=== PATIENT | female | born 1990 | race Caucasian/White ===

== ENCOUNTER 2022-10-21 08:08 | Outpatient (CLI) | payer BC, SELFPAY ==
--- NOTE | 2022-10-21 08:15 | CRLHL7_ITS ---
For Patients: As a result of the Century Cures Act, medical imaging exams and procedure reports are released immediately into your electronic medical record. You may view this report before your referring provider. If you have questions, please contact your health care provider. INDICATION: First trimester scan, establish dates. COMPARISON: None. TECHNIQUE: Real-time xiong-scale imaging of the pelvis was performed. FINDINGS: Sonographic imaging demonstrates a single living intrauterine gestation. The embryo demonstrates a regular cardiac rate measuring 178 beats per minute. The embryo`s crown-rump length measurement of 2.4 cm corresponds to a gestational age of 9 weeks 1 day with a sonographic due date of 05/25/2023. There is a normal-appearing yolk sac. There are no gross abnormalities noted within the embryo at this early state of development. The gestational sac has a normal appearance. There is a 1.7 x 0.5 x 1.1 cm lower uterine segment perigestational hemorrhage. The amount of fluid within the sac appears appropriate for gestational age. The cervix is closed. The myometrium appears normal. The ovaries are of normal size. Corpus luteal cyst right ovary. There are no suspicious fluid collections noted in the cul-de-sac. IMPRESSION: Single living intrauterine with sonographic gestational age 9 weeks 1 day and sonographic due date 05/25/2023. Lower uterine segment subchorionic hemorrhage measuring 1.7 x 0.5 x 1.1 cm. Dictated by Wilian Carmona MD @ 10/21/2022 12:02:19 PM (Electronically Signed)
== END 2022-10-21 08:09 | disposition home or self-care (01) ==
LOC: US 08:09
PROVIDERS: Visit Provider Advanced Practice Midwife
DX: Z34.91 Encounter for supervision of normal pregnancy, unspecified, first trimester (principal); Z3A.10 10 weeks gestation of pregnancy
CPT/HCPCS: 76817; 80053; 82570; 82728; 84156; 84443; 86592; 86703; 86762; 86787; 86803; 86850; 86900; 86901; 87086; 87340

== ENCOUNTER 2022-12-02 11:17 | Outpatient (CLI) | payer BC, SELFPAY ==
[2022-12-05 12:16] LABS: Dating Other; Family Hx Neural Tube Defect No; Insulin Req Maternal Diabetes No; Maternal Age At Delivery 31.7 yr; Maternal Race Nonblack; Maternal Screen Interpretation Screen Neg; MoM for AFP 0.57; Number of Fetuses Singleton; Patient's AFP 17 ng/mL; Smoking No
== END 2022-12-02 11:18 | disposition home or self-care (01) ==
PROVIDERS: Advanced Practice Midwife; PCP Advanced Practice Midwife; Visit Provider Advanced Practice Midwife
DX: Z34.82 Encounter for supervision of other normal pregnancy, second trimester (principal); Z3A.15 15 weeks gestation of pregnancy
CPT/HCPCS: 81511

== ENCOUNTER 2022-12-30 15:03 | Outpatient (CLI) | payer BC, SELFPAY ==
--- NOTE | 2022-12-30 15:00 | CRLHL7_ITS ---
For Patients: As a result of the Century Cures Act, medical imaging exams and procedure reports are released immediately into your electronic medical record. You may view this report before your referring provider. If you have questions, please contact your health care provider. INDICATION: Evaluate anatomy. COMPARISON: 10/21/2022 TECHNIQUE: Real time xiong scale imaging of the fetus was performed as well as color Doppler analysis of the umbilical vessels. FINDINGS: Sonographic imaging demonstrates a single living intrauterine gestation. Fetus demonstrates a regular cardiac rate of 167 beats per minute. Fetus has a variable position. The placenta lies anteriorly without evidence of placenta previa. The edge of the placenta is more than 7 cm from the internal cervical os. Amniotic fluid volume appears normal. Single deepest vertical pocket: 3.8 cm. The cervix is closed and measures 3.9 cm in length. The composite ultrasound gestational age is calculated at 19 weeks 0 days with an estimated sonographic due date of 05/26/2023. The estimated weight is 273 grams which lies at the 34th %. The following biometric measurements were obtained: Biparietal diameter: 4.3 cm/19 weeks 0 days 39th% Head circumference: 15.9 cm/18 weeks 5 days 19th% Abdominal circumference: 14.1 cm/19 weeks 3 days 52nd% Femur length: 2.8 cm/18 weeks 5 day 23rd% The HC/AC ratio measures: 1.13 range (1.09-1.26) On anatomic survey, there is a normal appearance of the cerebral ventricles, cavum septi pellucidi, cisterna magna and cerebellum. The nose, lips, and facial profile appear normal. The cervical, thoracic and lumbar spine are well visualized and appear normal. There is a normal four-chamber heart view and the left and right ventricular outflow tracts appear normal. The diaphragm and stomach appear normal. The kidneys and bladder also appear normal. There is a normal three-vessel cord and cord insertion site. The four extremities appear normal. IMPRESSION: Normal OB ultrasound exam with concordance of clinical and sonographic dating. No intrinsic abnormalities noted on anatomic survey. Dictated by Wilian Carmona MD @ 12/31/2022 12:53:47 PM (Electronically Signed)
== END 2022-12-30 15:04 | disposition home or self-care (01) ==
LOC: US 15:04
PROVIDERS: PCP Advanced Practice Midwife; Visit Provider Advanced Practice Midwife
DX: Z34.92 Encounter for supervision of normal pregnancy, unspecified, second trimester (principal); Z3A.19 19 weeks gestation of pregnancy
CPT/HCPCS: 76805

== ENCOUNTER 2023-04-06 00:56 | Outpatient (CLI) | payer BC, SELFPAY ==
[2023-04-06 01:08] VITALS: PULSE 81; O2SAT 96
[2023-04-06 01:09] VITALS: BP 111/69; PULSE 88
--- NOTE | 2023-04-06 06:03 | PC.OBNST ---
NST Note NST Note Start: 04/06/23 01:18 Freq: ONCE Status: Active Protocol: Document 04/06/23 05:59 LEYLA (Rec: 04/06/23 06:02 LEYLA [id number]) NST Note 5 Para (# of births) 2 EDC 05/24/23 Gestational Age In Weeks & Days 33 Weeks & 1 Days Patient Presented with Complaint(s) of Observation after an injury Other Complaints Patient tripped on a laundry basket and fell injuring her leg and abdomen. Patient did report hitting her belly but was unsure if it hit the floor or the laundry basket. A large bruise was observed on her leg and a small scratch with bruising was observed on the middle left side of her abdomen. Reactive Yes Appropriate for Gestational Age Yes JEFF Capps, RN Date 04/06/23 Reactive Yes Appropriate for Gestational Age Yes JEFF Britton, RN Date 04/06/23 OB NST charge Yes Complete NST Note via Write Note Yes The provider's electronic signature indicates the NST is reactive/appropriate for gestational age. *Note to provider: If an addendum is required, open the patient's chart and click on the note under the Nurse/Allied Health tab.
== END 2023-04-06 05:45 | disposition home or self-care (01) ==
LOC: OB OUT 00:56 → OB 00:57
PROVIDERS: PCP Advanced Practice Midwife; Visit Provider Advanced Practice Midwife
DX: O35.8XX0 Maternal care for other (suspected) fetal abnormality and damage, not applicable or unspecified (principal); W18.39XA Other fall on same level, initial encounter; Z3A.33 33 weeks gestation of pregnancy
CPT/HCPCS: 59025; 99213

== ENCOUNTER 2023-04-21 11:57 | Outpatient (CLI) | payer BC, SELFPAY ==
--- NOTE | 2023-04-21 12:15 | CRLHL7_ITS ---
For Patients: As a result of the Century Cures Act, medical imaging exams and procedure reports are released immediately into your electronic medical record. You may view this report before your referring provider. If you have questions, please contact your health care provider. INDICATION: Leg pain and swelling. TECHNIQUE: Ultrasound venous duplex lower right extremity. Compression venous exam was performed using xiong-scale, color Doppler, and spectral Doppler analysis. COMPARISON: None. FINDINGS: Deep veins: Sonographic imaging demonstrates the right common femoral, deep femoral, superficial femoral, popliteal, posterior tibial and the contralateral left common femoral veins to be fully compressible with normal color Doppler blood flow. Superficial veins: Greater saphenous vein is fully compressible. No popliteal cyst. Increased echogenicity is noted in the subcutaneous soft tissues in the region of the bruising and swelling commonly represent small hematoma at the site of injury. IMPRESSION: No DVT in the right lower extremity. Dictated by Sloane Jansen MD @ 04/21/2023 12:47:53 PM (Electronically Signed)
== END 2023-04-21 11:58 | disposition home or self-care (01) ==
LOC: US 11:58
PROVIDERS: PCP Advanced Practice Midwife; Visit Provider Physician Assistant
DX: M79.604 Pain in right leg (principal)
CPT/HCPCS: 93971

== ENCOUNTER 2023-04-30 11:45 | Outpatient (CLI) | payer BC, SELFPAY | END 2023-04-30 11:46 | disposition home or self-care (01) | LOC: NFLDREF 05-01 20:10 | PROVIDERS: PCP Advanced Practice Midwife; Referring Provider Advanced Practice Midwife; Visit Provider Advanced Practice Midwife | DX: Z34.93 Encounter for supervision of normal pregnancy, unspecified, third trimester (principal); Z3A.36 36 weeks gestation of pregnancy | CPT/HCPCS: 87081; 87653 ==

== ENCOUNTER 2023-05-02 13:57 | Outpatient (CLI) | payer BC, SELFPAY ==
[2023-05-02 14:23] VITALS: BP 108/77; PULSE 102
[2023-05-02 14:44] LABS: Appearance Urine Clear (Clear); Bilirubin Urine Negative (Negative); Blood Urine Negative (Negative); Color Urine Yellow (Yellow); Glucose Urine Negative (Negative); Ketones Urine Negative (Negative); Leukocyte Esterase Urine Negative (Negative); Nitrite Urine Negative (Negative); Protein Urine Negative (Negative); Urobilinogen Urine 0.2 (0.2-1.0)
[2023-05-02 14:46] LABS: Amnisure Rom* Negative
--- NOTE | 2023-05-02 15:48 | PC.OBNST ---
NST Note NST Note Start: 05/02/23 14:09 Freq: ONCE Status: Active Protocol: Document 05/02/23 15:00 WK (Rec: 05/02/23 15:48 WK [id number]) NST Note 3 Para (# of births) 2 EDC 05/24/23 Gestational Age In Weeks & Days 36 Weeks & 6 Days Patient Presented with Complaint(s) of Leaking fluid Reactive Yes RN Sami RNC Date 05/02/23 Reactive Yes RN Herberth RN Date 05/02/23 OB NST charge Yes Complete NST Note via Write Note Yes The provider's electronic signature indicates the NST is reactive/appropriate for gestational age. *Note to provider: If an addendum is required, open the patient's chart and click on the note under the Nurse/Allied Health tab.
== END 2023-05-02 15:28 | disposition home or self-care (01) ==
LOC: OB OUT 13:58 → OB 13:59
PROVIDERS: PCP Advanced Practice Midwife; Visit Provider Advanced Practice Midwife
DX: O47.03 False labor before 37 completed weeks of gestation, third trimester (principal); Z3A.36 36 weeks gestation of pregnancy
CPT/HCPCS: 59025; 81003; 84112; 99213

== ENCOUNTER 2023-05-12 11:23 | Outpatient (CLI) | payer BC, SELFPAY ==
--- NOTE | 2023-05-12 11:15 | CRLHL7_ITS ---
For Patients: As a result of the Century Cures Act, medical imaging exams and procedure reports are released immediately into your electronic medical record. You may view this report before your referring provider. If you have questions, please contact your health care provider. INDICATION: 32 year-old female measuring small for dates. Ultrasound for size/dates. TECHNIQUE: Transabdominal obstetrical ultrasound. COMPARISON: None. FINDINGS: Single living intrauterine in vertex presentation. Anterior placenta. heart rate 169 beats per minute. Normal amniotic fluid. Single deepest pocket measurement 5.2 cm. Biparietal diameter 8.5 cm, 34 weeks 2 days, less than the 3rd percentile. Head circumference 31.6 cm, 35 weeks 3 days, less than the 3rd percentile. Abdominal circumference 34.0 cm, 38 weeks 0 days, 59th percentile. Femur length 7.5 cm, 38 weeks 1 day, 51st percentile. Composite calculated ultrasound age 36 weeks 3 days with a sonographic due date of June 06, 2023. Estimated weight 3155 g which lies at the 37th percentile. The head to abdominal circumference ratio is normal at 0.93 (0.92-1.07). IMPRESSION: 1. Single living intrauterine in vertex presentation. 2. Composite calculated ultrasound age 36 weeks 3 days with a sonographic due date of June 06, 2023. 3. Estimated weight lies at the 37th percentile. 4. The head circumference and biparietal diameter are both measuring small for dates. Dictated by Rey Salomon MD @ 05/12/2023 2:21:12 PM (Electronically Signed)
== END 2023-05-12 11:24 | disposition home or self-care (01) ==
LOC: US 11:23
PROVIDERS: Visit Provider Advanced Practice Midwife
DX: Z34.93 Encounter for supervision of normal pregnancy, unspecified, third trimester (principal)
CPT/HCPCS: 76816

== ENCOUNTER 2023-05-19 20:03 | Outpatient (CLI) | payer BC, SELFPAY ==
[2023-05-19 20:29] VITALS: BP 117/79; PULSE 98
[2023-05-19 20:30] VITALS: TEMP 36.8
--- NOTE | 2023-05-19 21:13 | PC.OBNST ---
NST Note NST Note Start: 05/19/23 19:43 Freq: ONCE Status: Active Protocol: Document 05/19/23 21:12 AM (Rec: 05/19/23 21:13 AM [id number]) NST Note 5 Para (# of births) 2 EDC 05/24/23 Gestational Age In Weeks & Days 39 Weeks & 2 Days Patient Presented with Complaint(s) of Vaginal bleeding Other Complaints Vaginal Bleeding after Membranes swept this AM Reactive Yes Appropriate for Gestational Age Yes RN Madeline RNC Date 05/19/23 Reactive Yes Appropriate for Gestational Age Yes RN Siddharth RN Date 05/19/23 OB NST charge Yes Complete NST Note via Write Note Yes The provider's electronic signature indicates the NST is reactive/appropriate for gestational age. *Note to provider: If an addendum is required, open the patient's chart and click on the note under the Nurse/Allied Health tab.
== END 2023-05-19 21:10 | disposition home or self-care (01) ==
LOC: OB OUT 20:03 → OB 20:04
PROVIDERS: Visit Provider Advanced Practice Midwife
DX: Z34.93 Encounter for supervision of normal pregnancy, unspecified, third trimester (principal); Z3A.39 39 weeks gestation of pregnancy
CPT/HCPCS: 59025; 99213

== ENCOUNTER 2023-05-29 17:42 | Inpatient (IN) | payer BC, SELFPAY ==
[2023-05-29] VITALS (9 sets, daily range): BP systolic 105–145; BP diastolic 69–79; PULSE 68–104; RESP 16–18; TEMP 36.4–36.8; O2SAT 97–98; BMI 30.7
[2023-05-29 18:56] LABS: Amnisure Rom* Negative
--- NOTE | 2023-05-29 19:04 | P.LDBA_ITS ---
Subjective History of Present Illness Date Seen: 05/29/23 Narrative: Patient is being admitted to Labor and Delivery for an elective IOL at term. She is a 32 year old at 40.5 weeks gestation. Her full history and physical was dictated by Donato Willard CNM on 05/05/23. Please see this for details. She was seen in triage early this morning for contractions. She did not make cervical change and the decision to discharge was made. She continued to contract but not intensely throughout the day. At a perviously scheduled clinic visit she was uncomfortable and found to have made slight change that made her cervix favorable for induction and choose to have an induction today. She was unchanged from the clinic on admission. She did have a leaking of fluid once at home but has not leaked since. An Amnisure was performed to verify if there was SROM. Discussed options for IOL including cytotec, pitocin, or AROM. Risks and benefits of each were reviewed. She was found to be intact and would like to proceed with AROM. 1. Blood Type O Rh negative. Knows is O - Recommended Rhogam at 28 weeks: not necessary 03/03/23: Discussed and recommended RhoGAM. Discussed serious risks if not given. Patient states is O negative and declines and acknowledges risks. 2. Hx HVP+ and LEEP in 2013. Normal paps since. 3. Hyperemesis. On 4-8mg Zofran and Phenergan. IV fluids on 10/21. 4. Anxiety and OCD. On 200mg sertraline. 5. Hx PCOS 6. Possible pelvic organ prolapse. PT referral sent. 7. Constipation, bowel regimen Worsening with zofran, may want to consider alternative Taking colace multiple times, tried milk of mag and miralax Recommended trying magnesium calm, lactoluse, bisacodyl, or senna (safe per up-to-date) 8. Hemoglobin 10.9 at 28 weeks Slow FE every other day Hgb at 35 weeks:12.0 9. Measuring small for dates 05/12: EFW 37%ile OB - Problem Based A/P Additional Plan (1) Encounter for induction of labor: Status: Acute (2) : Status: Acute (3) Rh negative status during : Status: Acute Plan ASSESSMENT:? at 40.5 weeks gestation? GBS negative? Uncomplicated ? Elective IOL? ?? PLAN:? 1. Reviewed risks and benefits of IOL with pitocin vs cytotec vs. AROM. Pt prefers AROM. Pitocin to follow if needed.? 2. Candidate for analgesia of choice. Planning unmedicated .? 3. Anticipate ? 4. IV placement when patient condition changes. 5. Intermittent auscultation after reactive strip post AROM. Reevaluate monitoring plan?as condition changes. ? Delivery/Labor/Induction Plan Plan: induction Induction method: AROM OB Result Labs Blood Type: 0 (-) negative GBS Status: negative OB Exam Physical Exam Vital signs: Temp Pulse Resp BP Pulse Ox 97.6 F 101 H 16 145/79 H 97 05/29/23 17:57 05/29/23 17:57 05/29/23 17:57 05/29/23 17:57 05/29/23 18:00 Narrative: Psychiatric:? Alert and oriented x3? HEENT:? Normocephalic, atraumatic? Neck:? Supple without adenopathy or thyromegaly? Lungs:? Clear to auscultation bilaterally? Heart:? Regular rate and rhythm, no murmur, rub or gallop? Abdomen:? Soft, nontender, and gravid? Extremities:? No edema or erythema? Detailed Labor and Delivery Exam Patient Gravid: Yes Dilation (cm): 3 Effacement (%): 80 Cervix position: mid Consistency: medium Contraction Frequency: 5-10 Contraction intensity: Mild Fetus (Single) Station: -2 Amniotic Membrane Status: intact Heart Rate Baseline: 125 Monitor Accelerations: Present Monitor Decelerations: None Residential Variability: Moderate (6-25)
[2023-05-29] MEDS: OXYTOCIN 30 unit/500 ML in NS 30 UNIT/500 ML BAG IVPB (20:11)
[2023-05-29] MEDS: LACTATED RINGERS 1000 ML 1,000 ML 125 ML IV (20:11)
[2023-05-29] MEDS: CALCIUM CARBONATE 500 MG CHEW PO (21:11)
[2023-05-29] MEDS: ONDANSETRON 2 MG/ML inj 4 MG IV (22:19)
[2023-05-30] VITALS (58 sets, daily range): BP systolic 84–141; BP diastolic 46–89; PULSE 68–102; RESP 16–20; TEMP 36.4–36.9; O2SAT 96–100
[2023-05-30] MEDS: LACTATED RINGERS 1000 ML 1,000 ML 1200 ML IV ×2 (00:32→01:26)
[2023-05-30] MEDS: LIDOCAINE 2% (PF) 5 ML VIAL EPIDURAL (00:53)
[2023-05-30] MEDS: ROPIVACAINE 0.2% 100 ml 100 ML 12 MG EPIDURAL (00:57)
--- NOTE | 2023-05-30 01:03 | W.ANESCHARGE ---
Anesthesia Charges Start Date/Time Anesthesia Start Date: 05/30/23 Stop Date/Time Anesthesia Stop Date: 05/30/23
--- NOTE | 2023-05-30 01:04 | P.ANBPRC_ITS ---
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, in remission (ICD-10) Alcohol use disorder in remission ?F10.91 - Alcohol use, unspecified, in remission (ICD-10) Surgical History H/O LEEP ?Z98.890 - Other specified postprocedural states (ICD-10) [place] teeth extracted ?K08.409 - Partial loss of teeth, unspecified cause, unspecified class (ICD- 10) Family History (Updated 10/21/22 @ 09:54 by Nena Hernandez CNM) Maternal Grandfather Diabetes Brain aneurysm Myocardial infarction Maternal Grandmother Alzheimers disease Alcohol dependence Paternal Grandmother Schizoaffective disorder Mother High blood pressure Social History Narrative: SOCIAL Education: bachelors 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 stopped with +UPT Chicken Pox: Yes as a child MRSA: Denies What is your current living situation?: I presently have a place to live Problems where you live: no known problems In the past 12 months, utilities in danger of being shut off: no In the past 12 mos, have been you worried that your food would run out before you had money to buy more?: never true In the past 12 mos, the food you bought just didn't last and you didn't have money to buy more?: never true Are you following a diet prescribed by a doctor: No Are you following a special diet: Yes (vegetarian) Highest level of school completed/degree received: Bachelor's degree Physical activity type: none Smoking Status: Never smoker Second hand tobacco smoke exposure: No Non-prescribed substance use details: CBD before Caffeine: Yes How often does anyone, including family, friends and others, physically hurt you : never How often does anyone, including family, friends and others, insult or talk down to you: never How often does anyone, including family, friends and others, threaten you with harm: never How often does anyone, including family, friends and others, scream or curse at you: never Little interest or pleasure in doing things: not at all Feeling down, depressed, or hopeless: not at all Meds Home Medications and Allergies Home Medications Medication Instructions Recorded Confirmed Type prenat.vits,jose,psk-qaay-dwixi 1 tab PO QDAY 10/21/22 05/29/23 History ferrous sulfate 325 mg (65 mg 325 mg PO QDAY 03/18/23 05/29/23 History iron) tablet (iron) [id number] oral 10 ml PO PRN 04/21/23 05/29/23 History suspension magnesium 200 mg tablet 200 mg PO QDAY PRN 05/19/23 05/29/23 History Allergies Allergy/AdvReac Type Severity Reaction Status Date / Time No Known Drug Allergies Allergy Verified 05/29/23 12:51 Results Labs Labs: Laboratory Results - last 24 hr 05/29/23 18:47 Membrane Rupture Negative Vital Signs Vital Signs: Last Vital Signs Temp 98.4 F 05/30/23 01:00 Pulse 92 05/30/23 01:04 Resp 18 05/30/23 01:00 BP 115/70 05/30/23 01:04 Pulse Ox 98 05/30/23 01:00 Weight: 83.733 kg Height: 165.1 cm Anesthesia Procedures Epidural Insertion Patient Location: OB Start Time: 00:35 Stop Time: 01:35 Start Date: 05/30/23 Stop Date: 05/30/23 Reason for Block: primary anesthetic Patient Position: sitting Performed By: Prakash Jon Preanesthetic Checklist: IV checked, risks and benefits discussed, surgical consent, monitors and equipment checked, pre-op evaluation, timeout performed and anesthesia consent Prep: chlorhexidine gluconate Monitoring: blood pressure monitoring, hall monitor, continuous pulse oximetry and heart rate Approach: midline Vertebral Space: lumbar (1-5) Needle Type: Tuohy needle Injection Technique: continuous catheter (catheter) Needle gauge: 17 Needle Length (cm): 10 cm Needle Insertion Depth (cm): 5 Catheter Gauge: 19 Catheter Type: multi-orifice Catheter at skin depth (cm): 10 Test Dose Result: negative and lidocaine 1.5% with epinephrine 1 to 200,000
[2023-05-30] MEDS: PHENYLEPHRINE 100 MCG/ML SYRINGE IVP ×3 (01:11→01:25)
[2023-05-30] MEDS: ONDANSETRON 2 MG/ML inj 4 MG IV (03:05)
--- NOTE | 2023-05-30 04:41 | W.PM.OBVAGDE ---
OB Procedure Vag Delivery Mother Details Mother Details: The patient is a 32 year-old, 5, Para 2, admitted on 05/29/23 at 40.6 Days gestation. Patient was admitted for elective IOL. She was initially going to induced with AROM but due to the position of the cervix and patient tolerance AROM was not able to be performed. She elected for Pitocin induction after reviewing her options and the risks and benefits of each. She progressed nicely with Pitocin and elected to get an epidural after the contractions began to get more uncomfortable. SROM noted at 0313 with lightly stained meconium fluid. Patient was complete at 0246 and pushing at 0301. of a viable female at 0336 on her back in the bed after pushing in multiple positions including her side and hands and knees. Vertex delivered OA. No nuchal cord or shoulder. Body delivered easily and without incident. Infant passed to mothers abdomen with a vigorous cry. Cord was clamped and cut at > 5 minutes. APGARS were 7 at one minute and 9 at five minutes respectively. Mouth was bulb suctioned. Intact placenta with a 3 vessel cord delivered spontaneously at 0345. Fundus firm. 1st degree identified and not repaiired. It was well approximated and not bleeding. QBL 25 cc. Mother and baby stable; mother plans to breastfeed. weight pending.? : 5 Para: 3 Weeks Gestation: 40.6 Admission Date: 05/30/23 Additional Details Amniotic Membrane Status: intact Amniotic Membrane Rupture Date: 05/30/23 Amniotic Membrane Rupture Time: 03:13 Amniotic Membrane Fluid Description: Meconium Stained (lightly stained) Analgesia/Anesthesia Type: Epidural Waterbirth: No Pitcoin: Yes Intrapartal Events: Labor Induction Induction Method: per pitocin protocol Delivery augmentation: rupture of membranes Labor Onset: 02:46 Complete: 02:46 Pushin:01 Heart: heart tones during second stage were category 2. Baseline 120's with moderate variability and accelerations. Variable and late decels with good return to baseline were noted. Delivery Details Delivery Date: 05/30/23 Delivery Time: 03:36 Route of delivery: Infant Gender: Female Viability: Alive; Heart Rate Present Position at Delivery: OA Delivery Details: Delivered over intact perineum via spontaneous vaginal delivery. Infant was placed on maternal abdomen.? 1 Minute Interval Total Score: 7 5 Minute Interval Total Score: 9 Additional Details Shoulder Dystocia: No Placenta Delivery Time: 03:45 Placental Delivery Description: Spontaneous Procedure Done: Global Blood Loss: 25 Laceration: Perineal - 1st Degree (not repaired) Episiotomy Description: None Blood Loss Measurement Type: QBL Bakri Used: No Sponge/Need Count Correct: Yes Cord Vessel Description: 3 Vessels Event Summary Status: Mother and infant were stable after delivery. Disposition: floor
[2023-05-30] MEDS: ACETAMINOPHEN 500 MG TABLET 1000 MG PO ×4 (06:38→23:56)
[2023-05-30] MEDS: DOCUSATE SODIUM 100 MG CAPSULE PO (08:47)
[2023-05-30] MEDS: IBUPROFEN 600 MG TABLET PO ×3 (08:47→19:55)
[2023-05-30] MEDS: MAGNESIUM HYDROXIDE 30 ML ORAL.SUSP PO (18:27)
[2023-05-30] MEDS: LANOLIN CREAM 1 APPLIC TOPICAL (18:27)
[2023-05-31 03:15] VITALS: BP 121/77; PULSE 70; RESP 16; TEMP 36.6; O2SAT 97
[2023-05-31] MEDS: MAGNESIUM HYDROXIDE 30 ML ORAL.SUSP PO (03:26)
[2023-05-31] MEDS: IBUPROFEN 600 MG TABLET PO (03:26)
[2023-05-31] MEDS: ACETAMINOPHEN 500 MG TABLET 1000 MG PO (08:52)
[2023-05-31] MEDS: DOCUSATE SODIUM 100 MG CAPSULE PO (08:53)
[2023-05-31 09:00] VITALS: BP 123/85; PULSE 71; RESP 16; TEMP 36.9; O2SAT 96
--- NOTE | 2023-05-31 11:48 | PM.OBDSVD1 ---
DS: Providers Provider Date Seen: 05/31/23 Date of admission: 05/29/23 17:42 Primary care physician: Not a Local Provider Admitting Clinician: Nena Hernandez CNM Attending Physician on discharge: Nena Hernandez CNM Date of Discharge: 05/31/23 DS: Diagnosis Discharge Diagnosis (1) care following vaginal delivery: Status: Acute (2) Lactating mother: Status: Acute (3) Anxiety: Status: Acute (4) OCD (obsessive compulsive disorder): Status: Acute Exam Narrative: Exam Narrative: GENERAL APPEARANCE:? normal affect, alert, no distress? MOOD:? appropriate? CHEST:? clear to auscultation and percussion? HEART:? regular rate and rhythm? ABDOMEN:? soft, non-tender the uterine fundus is 2 cm Below Umbilicus, Midline and is appropriate for the stage of recovery. ? PERINEUM:? mild edema of the perineum, there is a 1st degree that is healing well.? EXTREMITIES:? normal and no edema? Patient has no complaints? No active bleeding?? Doing well? She is requesting discharge home.? Const: Vital Signs, click to edit/add: Vital Signs - 24 hr 05/30/23 12:42 05/30/23 16:00 05/30/23 19:39 Temperature 97.9 F 97.8 F 98.1 F Pulse Rate [Pulse Oximeter] 83 74 83 Respiratory Rate 16 16 16 Blood Pressure [Ri ght Arm] 120/80 131/89 116/80 Pulse Oximetry 97 98 98 Oxygen Delivery Me thod Room Air Room Air Room Air 05/30/23 23:39 05/31/23 03:15 05/31/23 09:00 Temperature 98.1 F 97.8 F 98.4 F Pulse Rate [Pulse Oximeter] 75 70 71 Respiratory Rate 16 16 16 Blood Pressure [Ri ght Arm] 105/67 121/77 123/85 Pulse Oximetry 97 97 96 Oxygen Delivery Me thod Room Air Room Air Room Air OB - DS: Summary Hospital Course Hospital Course: Patient is a 32year old, G 5 now P 3? admitted on 05/29/23 at 40 Weeks, 5 Days gestation for an elective IOL for postdates.? She had an uncomplicated vaginal delivery.? She delivered a viable female .? She is breast feeding and reports things are well.? the patient has done well.? Her pain is well controlled with current medications.? She has no new complaints.? Vitals have been stable. She has remained afebrile. She is voiding without difficulty. She is passing gas and has not had a bowel movement. She is ambulating and denies any dizziness. She is planning partner vasectomy for control.??She plans on using condoms and possibly a Caya diaphragm until after it is complete. She has a history of anxiety and OCD. She is on sertraline and feels stable on her current dose. She has been seeing a provider for medication management and plans follow up with her . she is aware to be seen wit any concerns. ? Peripartum Data delivery method: Vaginal Laceration description: Perineal - 1st Degree (not repaired) Episiotomy description: None complications: none Gender: Female Discharge Plan: Home Status at Discharge Functional status at discharge: independent ambulation Overall status at discharge: patient is progressing back to baseline Time Spent with Patient Time attestation: Total time spent providing and/or coordinating discharge services: Discharge Plan Discharge Disposition: Home, Self-Care Date of Admission: 05/29/23 17:42 Attending Provider on Discharge: Nena Hernandez Primary Care Provider: Provider,Not a Local Condition: Stable Anticipated Discharge Date/Time: 05/31/23 15:00 Discharge Medications: New docusate sodium 100 mg Capsule 100 mg PO DAILY Qty: 60 0RF Rx Instructions: Take 1-2 tablets daily as needed for constipation. ibuprofen 600 mg Tablet 600 mg PO Q6H PRNQty: 60 0RF Continued magnesium 200 mg tablet 200 mg PO QDAY PRN [id number] Suspension 10 ml PO PRN prenat.vits,jose,eog-qssu-zvuvb Tablet 1 tab PO QDAY sertraline 100 mg tablet 200 mg PO QDAY Qty: 180 0RF Discontinued ferrous sulfate [iron] 325 mg (65 mg iron) tablet 325 mg PO QDAY Discharge Orders: Discharge Order (Routine); Ordered 05/31/23 Ordered By: Nena Hernandez Additional Instructions: Discharge instructions were reviewed with the patient including signs and symptoms of infection and home going medications.? Lifting Restrictions: 20 pounds for 6? weeks? ?? Do not drive while taking narcotic pain meds.? Off Work or School for 6 weeks.? ?? Symptoms to report to doctor:? -Bleeding that saturates more than one pad per hour? -Passing clots larger than the size of a golf ball? -Pain not relieved by prescribed medication? -Fever above 100.4 degrees Fahrenheit? -A foul vaginal odor? -Difficulty in emotions, mood and functions? -Thoughts of hurting yourself and/or ? -Painful, reddened area in your breast? -Any drainage, redness or tenderness in your IV/epidural site? -Severe headache that doesn't improve after taking medications? -Changes in vision, including temporary loss of vision, blurred vision, and/or light sensitivity? -Upper abdominal pain (usually under ribs on the right side)? -Decrease in urination or painful, frequent urinating? -Chest pain? -Shortness of breath? -Tenderness or pain with redness and/swelling in the calf(s) of your leg? ?? Follow Up in clinic in 2 and 6 weeks.? ?? consultation services are available to all mothers and babies for the first year after delivery.? To make an appointment, please call [phone].? Activity Level: Activity as Tolerated Discharge Diet: Regular Follow Up Appointments: [facility] [Provider Group] Provider,Not a Local [Primary Care Provider] - Forms: MyHealth Info Instructions
== END 2023-05-31 14:50 | disposition home or self-care (01) | DRG 560 ==
PROVIDERS: Admitting Provider Advanced Practice Midwife; Visit Provider Advanced Practice Midwife
DX: O48.0 Post-term pregnancy (principal); O77.0 Labor and delivery complicated by meconium in amniotic fluid; O70.0 First degree perineal laceration during delivery; O99.344 Other mental disorders complicating childbirth; F41.9 Anxiety disorder, unspecified; F42.9 Obsessive-compulsive disorder, unspecified; F90.9 Attention-deficit hyperactivity disorder, unspecified type; Z37.0 Single live birth; Z3A.40 40 weeks gestation of pregnancy
CPT/HCPCS: 01967; 59025; 84112; 99213; A9270; J2371; J2405; J2795; J7120

== ENCOUNTER 2024-03-14 15:25 | Outpatient (CLI) | payer OTHER, SELFPAY | END 2024-03-14 15:26 | disposition home or self-care (01) | LOC: NFLDREF 15:28 | PROVIDERS: Visit Provider Advanced Practice Midwife | DX: N92.6 Irregular menstruation, unspecified (principal) | CPT/HCPCS: 84443 ==